=== PATIENT | female | born 1980 | race Caucasian/White ===

== ENCOUNTER 2019-09-14 12:59 | Emergency (ER) | payer MEDICAID ==
[~2019-09-14] VITALS: Ht 157.5 cm; Wt 65.8 kg
[~2019-09-14 12:59] MED LIST: CEPH250C16 PO
[2019-09-14 13:02] VITALS: BP 104/89
[2019-09-14 13:15] VITALS: BP 107/70
--- NOTE | 2019-09-14 13:30 | NUR ---
39 Y/O FEMALE FROM HOME C/O LT HAND FIFTH DIGIT PAIN X 1 MONTH. PT STATES SHE CLOSED FINGER IN DOOR A MONTH AGO AND THOUGHT IT WOULD GETTING BETTER BUT INCREASED PAIN. MILD SWELLING NOTED TO FINGER. 8/10 ACHING AT THIS TIME. SKIN WARM, DRY, AND INTACT. STATES UNABLE TO BEND FINGER. POSITIONED FOR COMFORT. MEDHX: DENIES ALLERGIES: MARISAA
--- NOTE | 2019-09-14 15:19 | NUR ---
X-Ray at bedside.
--- NOTE | 2019-09-14 15:36 | NUR ---
PT RESTING IN BED AWAKE AND ALERT. STATES TOLERABLE PAIN AT THIS TIME. VSS. WILL CONTINUE TO MONITOR
--- NOTE | 2019-09-14 15:53 | NUR ---
SPLINT PLACED TO LT PINKY, SKIN WARM, DRY, INTACT.
--- NOTE | 2019-09-14 15:54 | NUR ---
APPLIED FINGER SPLINT TO LEFT 5TH DIGIT WIHTOUT ANY ISSUES
--- NOTE | 2019-09-14 15:55 | NUR ---
DR DOBBS AT BEDSIDE RE-EVALUATING PT
[2019-09-14 16:00] VITALS: BP 107/70
--- NOTE | 2019-09-14 16:01 | NUR ---
Patient discharged with v/s stable. Written and verbal after care instructions given and explained. Patient alert, oriented and verbalized understanding of instructions. Ambulatory with steady gait. All questions addressed prior to discharge. ID band removed. Patient advised to follow up with PMD. Rx of NAPROSYN 375MG given. Patient educated on indication of medication including possible reaction and side effects. Opportunity to ask questions provided and answered.
== END 2019-09-14 16:01 | disposition home or self-care (01) ==
LOC: MED 12:59
DX: S62.607A Fracture of unspecified phalanx of left little finger, initial encounter for closed fracture (principal); Z79.899 Other long term (current) drug therapy; W23.0XXA Caught, crushed, jammed, or pinched between moving objects, initial encounter; Y93.89 Activity, other specified; Y92.89 Other specified places as the place of occurrence of the external cause; Y99.8 Other external cause status
CPT/HCPCS: 29130; 73140; 99283; Q0092

== ENCOUNTER 2023-08-11 17:14 | Emergency (ER) | payer MEDICAID, OTHER ==
[~2023-08-11] VITALS: Ht 157.5 cm; Wt 63.5 kg
[2023-08-11 17:16] VITALS: BP 129/90; PULSE 70; RESP 18; TEMP 97.9; O2SAT 100
[2023-08-11 18:51] LABS: EOSINOPHILS # (AUTO) 0.4 K/uL (0-0.4); EOSINOPHILS % (AUTO) 3.9 % (0.0-4.0); HEMATOCRIT 37.1 % (36-48); HEMOGLOBIN 12.7 g/dL (12.0-16.0); LYMPHOCYTES # (AUTO) 1.6 K/uL (2.5-16.5); MEAN CORPUSCULAR HEMOGLOBIN 32 pg (27-31); MEAN CORPUSCULAR HGB CONC 34 g/dL (33-37); MEAN CORPUSCULAR VOLUME 92.2 fL (80-94); MONOCYTES % (AUTO) 19.4 % (1.7-9.3); NEUTROPHILS # (AUTO) 6.4 K/uL (1.8-7.7); NEUTROPHILS % (AUTO) 61.7 % (42.2-75.2); PLATELET COUNT (AUTO) 270 K/uL (140-450); RED BLOOD CELL COUNT(AUTO) 4.02 MIL/uL (4.20-5.40); RED CELL DISTRIBUTION WIDTH 13.1 % (11.6-13.7); WHITE BLOOD COUNT (AUTO) 10.3 K/uL (4.8-10.8)
[2023-08-11 18:53] LABS: APPEARANCE,URINE CLEAR (CLEAR); BILIRUBIN,URINE NEGATIVE (NEGATIVE); BLOOD, URINE 2+ (NEGATIVE); COLOR,URINE YELLOW (YELLOW); LEUKOCYTE ESTERASE ,URINE NEGATIVE (NEGATIVE); NITRITE, URINE NEGATIVE (NEGATIVE); PROTEIN,URINE NEGATIVE (NEGATIVE); UGLUCOSE NEGATIVE (NEGATIVE); UROBILINOGEN,URINE 0.2 EU/dL (0.2 - 1)
[2023-08-11 19:11] LABS: BACTERIA,URINE FEW /HPF (None Seen); SQUAMOUS EPITHELIAL CELL,UR 4-10 (MOD) /LPF (0-3 (FEW)); WBC,URINE 0-5 /HPF (0-5)
== END 2023-08-11 21:08 | disposition home or self-care (01) ==
LOC: MED 17:14
DX: O20.0 Threatened abortion (principal); Z3A.11 11 weeks gestation of pregnancy; Z79.899 Other long term (current) drug therapy
CPT/HCPCS: 36415; 76817; 81001; 84702; 85025; 86900; 86901; 99284